=== PATIENT | male | born 2000 ===

== ENCOUNTER 2022-12-19 07:58 | Day surgery (SDC) | payer OTHER ==
[2022-12-19] MEDS ORDERED: PERCOCET 5-3251 EACH PO (10:51)
[2022-12-19] MEDS ORDERED: AMOX1TAB5 PO (10:51)
[2022-12-19] MEDS ORDERED: ZOFRAN8 MG PO (11:24)
== END 2022-12-19 17:00 | disposition home or self-care (01) ==
LOC: CIR.AMB 07:58
PROVIDERS: ATTEND Surgery
DX: L05.01 Pilonidal cyst with abscess (principal); I10 Essential (primary) hypertension; Z20.822 Contact with and (suspected) exposure to COVID-19